=== PATIENT | male | born 1975 | race Caucasian/White ===

== ENCOUNTER 2019-06-12 19:48 | Emergency (ER) | payer SELFPAY ==
[~2019-06-12] VITALS: Ht 167.6 cm; Wt 56.7 kg
[2019-06-12 20:16] VITALS: BP 121/81
[2019-06-12] MEDS ORDERED: KETOROLAC TROMETH 60MG/2ML VIAL IM ONE (20:45)
[2019-06-12] MEDS ORDERED: methylPREDNISolone SOD SUCC 125 MG/2 ML VL IM ONE (20:45)
[2019-06-12] MEDS ORDERED: COLCHICINE 0.6 MG CAP PO ONE ×2 (21:00→22:00)
== END 2019-06-12 22:19 | disposition home or self-care (01) ==
LOC: ER 19:55
DX: M10.061 Idiopathic gout, right knee (principal); M10.071 Idiopathic gout, right ankle and foot; M10.031 Idiopathic gout, right wrist
CPT/HCPCS: 96372; 99283; J1885; J2930

== ENCOUNTER 2019-07-30 12:38 | Emergency (ER) | payer SELFPAY ==
[~2019-07-30] VITALS: Ht 167.6 cm; Wt 62.6 kg
[2019-07-30] MEDS ORDERED: COLCHICINE 0.6 MG CAP PO ONE (15:00)
[2019-07-30 15:41] VITALS: BP 100/64
== END 2019-07-30 15:45 | disposition home or self-care (01) ==
LOC: ER 12:38
DX: M10.041 Idiopathic gout, right hand (principal)